=== PATIENT | female | born 1985 | race Caucasian/White ===

== ENCOUNTER 2022-04-06 22:47 | Emergency (ER) | payer BC ==
[2022-04-06] MEDS ORDERED: Mag-Al Plus 1200 MG/1200 MG/120 MG/30 ML UDCUP ONE (23:47)
[2022-04-06] MEDS ORDERED: Lidocaine Viscous Sol 2% 15 ml UD Cup ONE (23:47)
== END 2022-04-07 00:43 | disposition home or self-care (01) ==
LOC: CSHERS 22:47
DX: O99.891 Other specified diseases and conditions complicating pregnancy (principal); R10.13 Epigastric pain; R14.1 Gas pain; Z3A.33 33 weeks gestation of pregnancy
CPT/HCPCS: 93005; 93010

== ENCOUNTER 2022-05-13 21:01 | Day surgery (SDC) | payer BC ==
[2022-05-13 21:35] VITALS: BMI 32.5
[2022-05-13] MEDS ORDERED: hydrALAZINE 20 MG/ML VIAL SLOW IVP PRN (22:07)
[2022-05-13 22:34] LABS: Fetal Membranes Rupture No Membranes Rupture (No Rupture)
== END 2022-05-13 23:38 | disposition home or self-care (01) ==
LOC: CSHLD/OP 21:01
PROVIDERS: ATTEND Obstetrics & Gynecology
DX: O42.92 Full-term premature rupture of membranes, unspecified as to length of time between rupture and onset of labor (principal); O09.523 Supervision of elderly multigravida, third trimester; Z3A.38 38 weeks gestation of pregnancy
CPT/HCPCS: 84112; 87480; 87510; 87660; 99284

== ENCOUNTER 2022-05-24 05:30 | Inpatient (IN) | payer BC ==
[2022-05-23 09:48] LABS: Hemoglobin 12.6 g/dL (12.0-15.5); Mean Corpuscular HGB CONC 34.2 g/dL (32.0-36.0); Mean Corpuscular Hemoglobin 30.4 pg (27.0-33.0); Mean Corpuscular Volume 88.7 fl (81.6-98.3); Mean Platelet Volume 9.8 fl (7.4-10.4); Platelet Count 239 10x3/uL (150-450); RBC Distribution Width 13.5 % (11.5-14.5); Red Blood Cell (RBC) Count 4.15 10x6/uL (3.90-5.03); White Blood Cell (WBC) Count 9.1 10x3/uL (3.5-10.5)
[2022-05-23 10:20] LABS: Hep B Surf Ag Non-Reactive S/CO (NonReactive); Syphilis Antibody Nonreactive (Nonreactive)
[2022-05-23 10:21] LABS: HBSAg Index 0.15 S/CO (0-0.99)
[2022-05-23 10:27] LABS: SARS-CoV-2 NAA Rapid Test Not Detected (NotDetected)
[2022-05-24] MEDS ORDERED: Famotidine/PF 20 mg/2ml Vial SLOW IVP PRN (06:04)
[2022-05-24] MEDS ORDERED: ceFAZolin 2 GM/Dextrose 50 ML 2 GM in Premix Bag 1 BAG IVPB SCH (06:04)
[2022-05-24] MEDS ORDERED: Ondansetron PF 4 MG/2 ML Vial IVP PRN ×3 (06:04→10:24)
[2022-05-24] MEDS ORDERED: hydrALAZINE 20 MG/ML VIAL SLOW IVP PRN ×2 (06:04→10:24)
[2022-05-24] MEDS ORDERED: Promethazine HCl 25 MG/ML VIAL IM PRN ×2 (06:04→08:31)
[2022-05-24] MEDS ORDERED: Bicitra 30 ML UDCUP PO PRN (06:04)
[2022-05-24 06:05] VITALS: BMI 32.5
[2022-05-24] MEDS ORDERED: Lactated Ringer's 1,000 ML IV SCH (06:30)
[2022-05-24] MEDS ORDERED: Phenylephrine 40 MG/NS 250 ML 250 ML ONE (07:09)
[2022-05-24] MEDS ORDERED: Oxytocin 10 UNITS/ML VIAL ONE (07:09)
[2022-05-24] MEDS ORDERED: Ketorolac Tromethamine 30 MG/ML VIAL ONE (07:09)
[2022-05-24] MEDS ORDERED: PHENYLEPHRINE-NS 100 MCG/ML 10 ML SYRINGE ONE (07:09)
[2022-05-24] MEDS ORDERED: Ondansetron PF 4 MG/2 ML Vial ONE (07:10)
[2022-05-24] MEDS ORDERED: CEFAZOLIN 2 GM VIAL ONE (07:12)
[2022-05-24] MEDS ORDERED: Morphine PF 10 MG/10 ML VIAL ONE (07:20)
[2022-05-24] MEDS ORDERED: ePHEDrine Sulfate 50 MG/10 ML VIAL ONE (07:20)
[2022-05-24] MEDS ORDERED: Naloxone HCl 0.4 mg/ml Vial IV PRN (08:31)
[2022-05-24] MEDS ORDERED: Promethazine HCl 25 MG SUPP PR PRN (08:31)
[2022-05-24] MEDS ORDERED: Ondansetron HCl/PF 4 MG/2 ML Vial IVP PRN (08:31)
[2022-05-24] MEDS ORDERED: HYDROmorphone 2 MG/ML VIAL SLOW IVP PRN (08:31)
[2022-05-24] MEDS ORDERED: Ketorolac Tromethamine 30 MG/ML VIAL IVP PRN (08:31)
[2022-05-24] MEDS ORDERED: diphenhydrAMINE 50 MG/ML VIAL IVP PRN (08:31)
[2022-05-24] MEDS ORDERED: Fentanyl 100 MCG/2 ML VIAL SLOW IVP PRN (08:31)
[2022-05-24] MEDS ORDERED: Moisturizing Cream (Eucerin) 113 GM JAR TOP PRN (08:31)
[2022-05-24] MEDS ORDERED: Meperidine HCl/PF 25 MG/ML VIAL SLOW IVP PRN (08:31)
[2022-05-24] MEDS ORDERED: Naloxone HCl 0.4 mg/ml Vial IVP PRN ×2 (08:31)
[2022-05-24] MEDS ORDERED: Communication Order-Pharmacy FS SCH (08:45)
[2022-05-24] MEDS ORDERED: Ketorolac Tromethamine 30 MG/ML VIAL IVP SCH (08:45)
[2022-05-24] MEDS ORDERED: Simethicone Chewable 80 MG TAB PO PRN (10:24)
[2022-05-24] MEDS ORDERED: NS w/ Oxytocin 30 units 500 ML IV SCH (10:24)
[2022-05-24] MEDS ORDERED: diphenhydrAMINE 25 MG CAP PO PRN (10:24)
[2022-05-24] MEDS ORDERED: Methylergonovine 0.2 MG/ML VIAL IM PRN (10:24)
[2022-05-24] MEDS ORDERED: Lanolin Ointment 7 GM TUBE TOP PRN (10:24)
[2022-05-24] MEDS ORDERED: Boostrix 0.5 ML (Tdap) VIAL IM ONE (10:24)
[2022-05-24] MEDS: Prenatal Vitamin 1 TAB PO SCH (11:52)
[2022-05-24] MEDS: Ferrous Sulfate 325 MG TAB PO SCH ×2 (11:52→21:45)
[2022-05-24] MEDS: Docusate 100 MG CAP PO SCH ×2 (11:52→21:25)
[2022-05-24] MEDS: Ibuprofen 800 MG TAB PO SCH ×2 (13:56→21:45)
[2022-05-24] MEDS ORDERED: HYDROcodone/Acetaminophen 5/325 mg Tablet PO PRN (22:00)
[2022-05-25 08:01] LABS: Hemoglobin 10.6 g/dL (12.0-15.5); Mean Corpuscular Hemoglobin 30.2 pg (27.0-33.0); Mean Corpuscular Volume 88.9 fl (81.6-98.3); Mean Platelet Volume 9.5 fl (7.4-10.4); Platelet Count 202 10x3/uL (150-450); RBC Distribution Width 13.9 % (11.5-14.5); Red Blood Cell (RBC) Count 3.51 10x6/uL (3.90-5.03)
[2022-05-25] MEDS: Docusate 100 MG CAP PO SCH ×2 (08:24→21:15)
[2022-05-25] MEDS: HYDROcodone/Acetaminophen 5/325 mg Tablet PO PRN ×4 (08:24→23:37)
[2022-05-25] MEDS: Prenatal Vitamin 1 TAB PO SCH (08:24)
[2022-05-25] MEDS: Ferrous Sulfate 325 MG TAB PO SCH ×2 (12:00→19:25)
[2022-05-25] MEDS: Ibuprofen 800 MG TAB PO SCH ×3 (13:31→21:15)
[2022-05-26] MEDS: Ibuprofen 800 MG TAB PO SCH (05:11)
[2022-05-26] MEDS: Ferrous Sulfate 325 MG TAB PO SCH (08:30)
[2022-05-26] MEDS: Prenatal Vitamin 1 TAB PO SCH (08:31)
[2022-05-26] MEDS: Docusate 100 MG CAP PO SCH (08:31)
[2022-05-26 11:02] VITALS: BP 127/69; TEMP 98.3
== END 2022-05-26 11:25 | disposition home or self-care (01) | DRG 788 ==
LOC: CSHLD 05:30 → CSHPP 11:10
PROVIDERS: ADMIT Obstetrics & Gynecology; ATTEND Obstetrics & Gynecology
PROC: 10D00Z1 Extraction of Products of Conception, Low, Open Approach (ICD-10-PCS; principal; 2022-05-24)
DX: O34.211 Maternal care for low transverse scar from previous cesarean delivery (principal); Z20.822 Contact with and (suspected) exposure to COVID-19; E03.9 Hypothyroidism, unspecified; O99.284 Endocrine, nutritional and metabolic diseases complicating childbirth; Z3A.39 39 weeks gestation of pregnancy; Z37.0 Single live birth; Z79.890 Hormone replacement therapy
CPT/HCPCS: 51702; 85027; 86780; 86850; 86900; 86901; 87340; J0690; J1200; J1885; J2274; J2405; J2590; U0002

== ENCOUNTER 2022-06-06 02:30 | Emergency (ER) | payer BC ==
[2022-06-06] MEDS ORDERED: Sucralfate 1 GM/10 ML UDCUP ONE (02:58)
[2022-06-06] MEDS ORDERED: Ondansetron PF 4 MG/2 ML Vial ONE (02:58)
[2022-06-06 03:14] LABS: #Basophils 0.1 10x3/uL (0.0-0.2); #Eosinphils 0.1 10x3/uL (0.0-0.5); #Monocytes 0.8 10x3/uL (0.0-1.1); #Neutrophils 7.6 10x3/uL (1.5-8.4); %Basophils 0.5 % (0.0-2.0); %Eosinophils 0.7 % (0.0-6.0); %Lymphocytes 22.3 % (18.0-47.0); %Monocytes 7.1 % (0.0-10.0); %Neutrophils 68.9 % (40.0-75.0); Hemoglobin 13.7 g/dL (12.0-15.5); Mean Corpuscular HGB CONC 33.5 g/dL (32.0-36.0); Mean Corpuscular Hemoglobin 29.5 pg (27.0-33.0); Mean Corpuscular Volume 88.1 fl (81.6-98.3); Mean Platelet Volume 8.6 fl (7.4-10.4); Platelet Count 357 10x3/uL (150-450); RBC Distribution Width 12.9 % (11.5-14.5); Red Blood Cell (RBC) Count 4.64 10x6/uL (3.90-5.03)
[2022-06-06] MEDS ORDERED: Morphine 4 MG/ML VIAL ONE (03:24)
[2022-06-06 03:28] LABS: ALT (SGPT) 51 U/L (8-55); AST (SGOT) 78 U/L (5-34); Albumin 4.2 g/dL (3.5-5.0); Alkaline Phosphatase 101 U/L (40-110); Anion Gap 19 mmol/L (10-20); BUN (Urea Nitrogen) 18 mg/dL (7.0-18.7); Bilirubin, Total 0.8 mg/dL (0.2-1.2); Calc. Creatinine Clearance 0 mL/min (70-130); Calcium 10.1 mg/dL (7.8-10.44); Carbon Dioxide 23 mmol/L (22-29); Chloride 102 mmol/L (98-107); Estimated GFR 91; Globulin 3.4 g/dL (2.4-3.5); Glucose 106 mg/dL (70-105); Lipase 23 U/L (8-78); Potassium 3.9 mmol/L (3.5-5.1); Protein, Total 7.6 g/dL (6.0-8.3); Sodium 140 mmol/L (136-145)
[2022-06-06 03:55] LABS: Bilirubin Neg (Negative); Blood, Urine 150 (Negative); Clarity Slightly Cloudy (Clear); Glucose, Urine (Dipstick) Normal (Negative); Ketone, Urine Negative (Negative); Leukocyte 500 (Negative); Nitrite Negative (Negative); Protein, Urine (Dipstick) Negative (Neg-Trace); Specific Gravity, Urine 1.015 (1.002-1.036); Urobilinogen Normal mg/dL (Less than 2)
[2022-06-06 04:06] LABS: Bacteria/HPF Rare-Few HPF (None Seen); Calcium Oxalate Crystals 1+ HPF (None Seen); Squamous Epithelial 0-3 HPF (0-3)
== END 2022-06-06 06:24 | disposition home or self-care (01) ==
LOC: CSHERS 02:30
DX: O99.63 Diseases of the digestive system complicating the puerperium (principal); K80.20 Calculus of gallbladder without cholecystitis without obstruction; O99.285 Endocrine, nutritional and metabolic diseases complicating the puerperium; E03.9 Hypothyroidism, unspecified; Z79.899 Other long term (current) drug therapy
CPT/HCPCS: 76705; 80053; 81003; 81015; 83690; 85025; 93005; 96361; 96374; 96375; J2270; J2405

== ENCOUNTER 2022-06-12 16:47 | Inpatient (IN) | payer BC ==
[2022-06-12] MEDS ORDERED: Ondansetron PF 4 MG/2 ML Vial ONE (18:29)
[2022-06-12] MEDS ORDERED: Ketorolac Tromethamine 30 MG/ML VIAL ONE (18:29)
[2022-06-12 18:39] LABS: #Basophils 0.1 10x3/uL (0.0-0.2); #Eosinphils 0.1 10x3/uL (0.0-0.5); #Monocytes 0.6 10x3/uL (0.0-1.1); %Basophils 0.9 % (0.0-2.0); %Eosinophils 1.2 % (0.0-6.0); %Lymphocytes 30.4 % (18.0-47.0); %Monocytes 8.7 % (0.0-10.0); %Neutrophils 58.7 % (40.0-75.0); Mean Corpuscular HGB CONC 33.1 g/dL (32.0-36.0); Mean Corpuscular Hemoglobin 29.2 pg (27.0-33.0); Mean Corpuscular Volume 88.1 fl (81.6-98.3); Mean Platelet Volume 9.2 fl (7.4-10.4); Platelet Count 331 10x3/uL (150-450); RBC Distribution Width 12.7 % (11.5-14.5); White Blood Cell (WBC) Count 6.8 10x3/uL (3.5-10.5)
[2022-06-12 18:51] LABS: ALT (SGPT) 454 U/L (8-55); AST (SGOT) 429 U/L (5-34); Albumin 4.2 g/dL (3.5-5.0); Alkaline Phosphatase 224 U/L (40-110); Anion Gap 14 mmol/L (10-20); BUN (Urea Nitrogen) 13 mg/dL (7.0-18.7); Bilirubin, Total 2.2 mg/dL (0.2-1.2); Calc. Creatinine Clearance 0 mL/min (70-130); Calcium 9.2 mg/dL (7.8-10.44); Carbon Dioxide 22 mmol/L (22-29); Chloride 105 mmol/L (98-107); Estimated GFR 107; Globulin 3.4 g/dL (2.4-3.5); Glucose 95 mg/dL (70-105); Lipase 28 U/L (8-78); Potassium 4.1 mmol/L (3.5-5.1); Protein, Total 7.6 g/dL (6.0-8.3); Sodium 137 mmol/L (136-145)
[2022-06-12 19:34] LABS: Bilirubin 1+ (Negative); Blood, Urine 10 (Negative); Clarity Clear (Clear); Glucose, Urine (Dipstick) Normal (Negative); Ketone, Urine Negative (Negative); Leukocyte 100 (Negative); Nitrite Negative (Negative); Protein, Urine (Dipstick) 15 mg/dl (Neg-Trace); Specific Gravity, Urine 1.015 (1.002-1.036); pH, Urine 6.5 (5.0-9.0)
[2022-06-12 19:38] LABS: Pregnancy Test - Urine (BHCG) Negative (Negative); Pregu Control Background? CLEAR/WHITE (CLR/WHITE); Pregu Control Bar Appear? YES (CONTROL BAR); Specific Gravity 1.015 (1.002-1.036)
[2022-06-12 20:24] LABS: Bacteria/HPF 1+ HPF (None Seen); RBC/HPF 0-3 HPF (0-3); Squamous Epithelial 0-3 HPF (0-3)
[2022-06-12] MEDS ORDERED: Acetaminophen 325 MG TAB PO PRN (22:26)
[2022-06-12] MEDS ORDERED: Bisacodyl 5 MG TAB PO PRN (22:26)
[2022-06-12] MEDS ORDERED: Zolpidem Tartrate 5 MG TAB PO PRN (22:26)
[2022-06-12] MEDS ORDERED: Senokot S 8.6-50 MG TAB PO PRN (22:26)
[2022-06-12] MEDS ORDERED: Ondansetron ODT 4 MG TAB PO PRN (22:26)
[2022-06-13] MEDS ORDERED: Dextrose 5 % And 0.9 % NaCl 1,000 ML IV SCH (01:00)
[2022-06-13 01:05] LABS: SARS-CoV-2 NAA Rapid Test Not Detected (NotDetected)
[2022-06-13 01:21] VITALS: BMI 29.7
[2022-06-13 04:57] LABS: #Basophils 0.1 10x3/uL (0.0-0.2); #Eosinphils 0.1 10x3/uL (0.0-0.5); #Monocytes 0.5 10x3/uL (0.0-1.1); #Neutrophils 2.6 10x3/uL (1.5-8.4); %Eosinophils 1.9 % (0.0-6.0); %Lymphocytes 43.8 % (18.0-47.0); %Monocytes 8.9 % (0.0-10.0); %Neutrophils 44.2 % (40.0-75.0); Hemoglobin 12.4 g/dL (12.0-15.5); Mean Corpuscular HGB CONC 32.8 g/dL (32.0-36.0); Mean Corpuscular Hemoglobin 29.5 pg (27.0-33.0); Mean Platelet Volume 9.4 fl (7.4-10.4); Platelet Count 265 10x3/uL (150-450); RBC Distribution Width 12.9 % (11.5-14.5); White Blood Cell (WBC) Count 5.9 10x3/uL (3.5-10.5)
[2022-06-13 05:06] LABS: ALT (SGPT) 374 U/L (8-55); AST (SGOT) 241 U/L (5-34); Albumin 3.7 g/dL (3.5-5.0); Alkaline Phosphatase 198 U/L (40-110); Anion Gap 11 mmol/L (10-20); BUN (Urea Nitrogen) 12 mg/dL (7.0-18.7); Calc. Creatinine Clearance 135 mL/min (70-130); Calcium 8.5 mg/dL (7.8-10.44); Carbon Dioxide 25 mmol/L (22-29); Chloride 109 mmol/L (98-107); Estimated GFR 96; Globulin 2.6 g/dL (2.4-3.5); Glucose 91 mg/dL (70-105); Potassium 4.2 mmol/L (3.5-5.1); Protein, Total 6.3 g/dL (6.0-8.3); Sodium 141 mmol/L (136-145)
[2022-06-13] MEDS: Levothyroxine Sodium 125 MCG TAB PO SCH (08:32)
[2022-06-13] MEDS: Famotidine 20 MG TAB PO SCH (08:32)
[2022-06-13] MEDS: Dextrose 5 % And 0.9 % NaCl 1,000 ML IV SCH ×2 (12:36→22:21)
[2022-06-13] MEDS ORDERED: Ondansetron PF 4 MG/2 ML Vial ONE ×2 (13:53→18:41)
[2022-06-13] MEDS ORDERED: Lidocaine 1% PF 5 ML VIAL ONE (13:53)
[2022-06-13] MEDS ORDERED: PROPOFOL 20 ML ONE (13:53)
[2022-06-13] MEDS ORDERED: Midazolam HCl 2 mg/2 ml Vial ONE (13:53)
[2022-06-13] MEDS ORDERED: Rocuronium Bromide 10 MG/ML (10ML VIAL) ONE (13:53)
[2022-06-13] MEDS ORDERED: Dexamethasone 4 mg/ml Vial ONE (13:53)
[2022-06-13] MEDS ORDERED: Glycopyrrolate 0.2 MG/ML 5 ML SYRINGE ONE (13:53)
[2022-06-13] MEDS ORDERED: Fentanyl 250 MCG/5 ML VIAL ONE (13:53)
[2022-06-13] MEDS ORDERED: Ketorolac Tromethamine 30 MG/ML VIAL ONE (13:54)
[2022-06-13] MEDS ORDERED: Iopamidol 30 ML ONE (15:35)
[2022-06-13] MEDS ORDERED: CEFAZOLIN 1 GM VIAL ONE (16:26)
[2022-06-13] MEDS ORDERED: EPINEPHrine 1 MG/ML AMP ONE (17:11)
[2022-06-13] MEDS ORDERED: Bupivacaine PF 0.5% 30 ML VIAL ONE (17:11)
[2022-06-13] MEDS ORDERED: Ondansetron HCl/PF 4 MG/2 ML Vial IVP PRN (17:35)
[2022-06-13] MEDS ORDERED: Promethazine HCl 25 MG/ML VIAL IVPB PRN (17:35)
[2022-06-13] MEDS ORDERED: Promethazine HCl 25 MG/ML VIAL IM PRN (17:35)
[2022-06-13] MEDS ORDERED: Fentanyl 100 MCG/2 ML VIAL ONE (18:17)
[2022-06-14] MEDS: Famotidine 20 MG TAB PO SCH ×2 (00:16→07:54)
[2022-06-14] MEDS: HYDROcodone/Acetaminophen 10/325 mg Tablet PO PRN ×2 (02:06→07:54)
[2022-06-14 04:53] LABS: #Monocytes 0.6 10x3/uL (0.0-1.1); #Neutrophils 5.6 10x3/uL (1.5-8.4); %Basophils 0.4 % (0.0-2.0); %Eosinophils 0.1 % (0.0-6.0); %Lymphocytes 25.4 % (18.0-47.0); %Monocytes 7.5 % (0.0-10.0); %Neutrophils 66.2 % (40.0-75.0); Hemoglobin 12.3 g/dL (12.0-15.5); Mean Corpuscular HGB CONC 32.8 g/dL (32.0-36.0); Mean Corpuscular Hemoglobin 29.9 pg (27.0-33.0); Mean Corpuscular Volume 91.2 fl (81.6-98.3); Mean Platelet Volume 9.4 fl (7.4-10.4); Platelet Count 292 10x3/uL (150-450); RBC Distribution Width 12.7 % (11.5-14.5); Red Blood Cell (RBC) Count 4.11 10x6/uL (3.90-5.03); White Blood Cell (WBC) Count 8.4 10x3/uL (3.5-10.5)
[2022-06-14 05:00] LABS: ALT (SGPT) 239 U/L (8-55); AST (SGOT) 86 U/L (5-34); Albumin 3.7 g/dL (3.5-5.0); Alkaline Phosphatase 169 U/L (40-110); Anion Gap 13 mmol/L (10-20); BUN (Urea Nitrogen) 10 mg/dL (7.0-18.7); Bilirubin, Total 0.7 mg/dL (0.2-1.2); Calc. Creatinine Clearance 146 mL/min (70-130); Calcium 8.6 mg/dL (7.8-10.44); Carbon Dioxide 21 mmol/L (22-29); Chloride 108 mmol/L (98-107); Estimated GFR 106; Globulin 2.7 g/dL (2.4-3.5); Glucose 114 mg/dL (70-105); Potassium 3.7 mmol/L (3.5-5.1); Protein, Total 6.4 g/dL (6.0-8.3); Sodium 138 mmol/L (136-145)
[2022-06-14] MEDS: Levothyroxine Sodium 125 MCG TAB PO SCH (07:54)
[2022-06-14] MEDS: Dextrose 5 % And 0.9 % NaCl 1,000 ML IV SCH (08:29)
[2022-06-14 11:12] VITALS: BP 119/57; TEMP 97.9
== END 2022-06-14 12:25 | disposition home or self-care (01) | DRG 769 ==
LOC: CSHERS 16:47 → CSHPP 21:23 → UNDOADMIN 06-13 00:05 → CSHPP 06-13 00:05
PROVIDERS: ADMIT Internal Medicine; ATTEND Internal Medicine Geriatric Medicine
PROC: 0FT44ZZ Resection of Gallbladder, Percutaneous Endoscopic Approach (ICD-10-PCS; principal; 2022-06-13)
PROC: BF532Z0 Other Imaging of Gallbladder and Bile Ducts using Fluorescing Agent, Intraoperative (ICD-10-PCS; 2022-06-13)
DX: O99.63 Diseases of the digestive system complicating the puerperium (principal); K80.64 Calculus of gallbladder and bile duct with chronic cholecystitis without obstruction; Z20.822 Contact with and (suspected) exposure to COVID-19; E66.9 Obesity, unspecified; O99.215 Obesity complicating the puerperium; E03.9 Hypothyroidism, unspecified; O99.285 Endocrine, nutritional and metabolic diseases complicating the puerperium; Z79.82 Long term (current) use of aspirin; Z79.890 Hormone replacement therapy; Z82.49 Family history of ischemic heart disease and other diseases of the circulatory system
CPT/HCPCS: 36415; 47532; 74176; 74181; 76705; 80053; 81003; 81015; 81025; 83690; 85025; 86850; 86900; 86901; 88304; 93005; 96361; 96374; 96375; C1713; J0171; J0690; J1100; J1885; J2250; J2405; J2704; J3010; J7042; Q9967; S0020; U0002